=== PATIENT | female | born 1975 | race Caucasian/White ===

== ENCOUNTER → 2017-11-06 | Outpatient (CLI) | payer OTHER | LOC: M.RAD 10:45 | DX: Z12.31 Encounter for screening mammogram for malignant neoplasm of breast (principal) ==

== ENCOUNTER → 2017-11-11 | Outpatient (CLI) | payer OTHER | LOC: M.ULTRA 09:55 | DX: N60.02 Solitary cyst of left breast (principal); N60.01 Solitary cyst of right breast ==